=== PATIENT | male | born 2000 | race Two or more races ===

== ENCOUNTER 2023-08-18 01:29 | Emergency (ER) | payer SELFPAY ==
[~2023-08-18] VITALS: Ht 167.6 cm; Wt 88.0 kg
[2023-08-18 01:41] VITALS: TEMP 98.5
[2023-08-18] MEDS ORDERED: IBUP-1492 PO (02:54)
[2023-08-18] MEDS ORDERED: IBUPROFEN 800 MG TABLET PO ONE (03:00)
[2023-08-18 03:45] VITALS: BP 127/83; PULSE 80; RESP 16
== END 2023-08-18 03:46 | disposition home or self-care (01) ==
LOC: EMS 01:30
DX: S13.4XXA Sprain of ligaments of cervical spine, initial encounter (principal); M25.511 Pain in right shoulder; J45.909 Unspecified asthma, uncomplicated; V98.8XXA Other specified transport accidents, initial encounter; Y93.89 Activity, other specified; Y92.89 Other specified places as the place of occurrence of the external cause; Y99.8 Other external cause status
CPT/HCPCS: 99283